=== PATIENT | male | born 2000 | race Two or more races ===

== ENCOUNTER 2019-05-04 19:56 | Emergency (ER) | payer MEDICAID ==
[~2019-05-04] VITALS: Ht 180.3 cm; Wt 65.1 kg
[2019-05-04] MEDS ORDERED: LIDOCAINE-MPF 1%, 2ML ONE ×2 (20:19→20:22)
[2019-05-04] MEDS ORDERED: DIPH,PERTUSS(ACELL),TET VAC/PF 0.5 ML IM-VACC ONE ×2 (20:22→20:30)
--- NOTE | 2019-05-04 20:28 | NUR ---
pt medicated per mar
[2019-05-04] MEDS ORDERED: LIDOCAINE-MPF 1%, 5ML INFIL ONE (20:30)
[2019-05-04 20:43] VITALS: BP 120/59
--- NOTE | 2019-05-04 20:47 | NUR ---
dressing applied to i&d site
[2019-05-04] MEDS ORDERED: NEOSPORIN OINT. PKT 1 PACKET ONE (20:48)
== END 2019-05-04 20:54 ==
LOC: ED 20:48
DX: L02.01 Cutaneous abscess of face (principal); R51 Headache; F17.210 Nicotine dependence, cigarettes, uncomplicated
CPT/HCPCS: 10060; 90471; 90715

== ENCOUNTER 2019-05-06 19:32 | Emergency (ER) | payer MEDICAID ==
[~2019-05-06] VITALS: Ht 180.3 cm; Wt 66.4 kg
[2019-05-06 19:34] VITALS: BP 117/87
== END 2019-05-06 19:57 | disposition home or self-care (01) ==
LOC: ED 19:45
DX: L02.01 Cutaneous abscess of face (principal)
CPT/HCPCS: 99281

== ENCOUNTER 2019-06-11 11:12 | Emergency (ER) | payer MEDICAID ==
--- NOTE | 2019-06-11 12:06 | NUR ---
NOT IN LOBBY WHEN CALLED TO TRIAGE X 1.
--- NOTE | 2019-06-11 12:12 | NUR ---
na x 2 [id number], 121
--- NOTE | 2019-06-11 12:47 | NUR ---
NOT IN LOBBY X 3.
== END 2019-06-11 12:53 ==
LOC: ED 12:42
DX: R25.3 Fasciculation (principal); Z53.21 Procedure and treatment not carried out due to patient leaving prior to being seen by health care provider

== ENCOUNTER 2019-06-14 19:14 | Emergency (ER) | payer MEDICAID ==
[~2019-06-14] VITALS: Ht 180.3 cm; Wt 67.9 kg
[2019-06-14 19:18] VITALS: BP 123/63
[2019-06-14] MEDS ORDERED: LIDOCAINE 1%, 10ML INFIL ONE (20:00)
[2019-06-14] MEDS ORDERED: LIDOCAINE-MPF 1%, 5ML ONE (20:06)
--- NOTE | 2019-06-14 20:40 | NUR ---
2 BOTTLES LIDOCAINE GIVEN TO YUE. I&D KIT AT BEDSIDE.
[2019-06-14] MEDS ORDERED: NEOSPORIN OINT. PKT 1 PACKET ONE (21:04)
--- NOTE | 2019-06-14 21:07 | NUR ---
REPORT TO MANDI RAE.
--- NOTE | 2019-06-14 21:32 | NUR ---
DC EDUCATION PROVIDED, PT DEMONSTRATES UNDERSTANDING. PT AMBULATED STEADILY TO DC WITH RN
== END 2019-06-14 21:33 | disposition home or self-care (01) ==
LOC: ED 20:58
DX: L03.012 Cellulitis of left finger (principal); F17.200 Nicotine dependence, unspecified, uncomplicated
CPT/HCPCS: 10060; 99283

== ENCOUNTER 2019-07-01 16:57 | Emergency (ER) | payer MEDICAID ==
[~2019-07-01] VITALS: Ht 180.3 cm; Wt 66.0 kg
[2019-07-01 17:08] VITALS: BP 123/67
--- NOTE | 2019-07-01 17:14 | NUR ---
PT HERE FOR DOCTORS NOTE.
--- NOTE | 2019-07-01 17:37 | NUR ---
Patient/Caregiver given discharge instructions and they have confirmed that they understand the instructions. Patient ambulatory with steady gait.
== END 2019-07-01 17:39 | disposition home or self-care (01) ==
LOC: ED 17:20
DX: J00 Acute nasopharyngitis [common cold] (principal); F17.200 Nicotine dependence, unspecified, uncomplicated
CPT/HCPCS: 99281

== ENCOUNTER 2019-08-12 13:05 | Emergency (ER) | payer MEDICAID ==
[~2019-08-12] VITALS: Ht 180.3 cm; Wt 68.0 kg
--- NOTE | 2019-08-12 13:13 | NUR ---
NA X1
--- NOTE | 2019-08-12 13:18 | NUR ---
NA X2
--- NOTE | 2019-08-12 16:56 | NUR ---
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
--- NOTE | 2019-08-12 17:05 | NUR ---
Late entry: Pt ambulated to room, resting in gurney, changed into gown, call light within reach, denies additional needs, even and unlabored respirations, NAD, WCTM.
[2019-08-12 17:51] LABS: BASOPHILS # (AUTO) 0.02 x10^3/uL (0-0.3); BASOPHILS % (AUTO) 0 % (0-1); EOSINOPHILS # (AUTO) 0.06 x10^3/uL (0-0.8); EOSINOPHILS % (AUTO) 1 % (1-7); LYMPHOCYTES # (AUTO) 2.04 x10^3/uL (1-6.1); LYMPHOCYTES % (AUTO) 23 % (22-44); MD NO; MEAN CORPUSCULAR HEMOGLOBIN 32.3 pg (27.5-34.5); MEAN CORPUSCULAR VOLUME 94.9 fL (81-97); MEAN PLATELET VOLUME 9.5 fL (7.4-10.4); MONOCYTES # (AUTO) 0.76 x10^3/uL (0-1.4); MONOCYTES % (AUTO) 8 % (2-9); NEUTROPHILS # (AUTO) 6.17 x10^3/uL (1.8-8.0); NEUTROPHILS % (AUTO) 68 % (42-75); PLATELET COUNT 190 x10^3/uL (130-400); RED BLOOD COUNT 5.43 x10^6/uL (4.38-5.82); RED CELL DISTRIBUTION WIDTH 13.5 % (9.4-14.8)
--- NOTE | 2019-08-12 17:53 | NUR ---
Pt resting in [place], changed into gown, call light within reach, denies additional needs, even and unlabored respirations, NAD, WCTM. Waiting on rad and lab results.
[2019-08-12] MEDS ORDERED: KETOROLAC 30 MG/1 ML IM ONE (18:00)
[2019-08-12 18:01] LABS: ALBUMIN 3.8 g/dL (3.4-5.0); ANION GAP 6 mmol/L (5-15); CALCIUM 8.4 mg/dL (8.5-10.1); CHLORIDE 108 mmol/L (98-107)
[2019-08-12 18:05] LABS: ALANINE AMINOTRANSFERASE 42 U/L (12-78); ALKALINE PHOSPHATASE 84 U/L (45-117); BILIRUBIN,TOTAL 0.4 mg/dL (0.2-1.0); CREATININE 1.05 mg/dL (0.7-1.3)
--- NOTE | 2019-08-12 18:49 | NUR ---
pt resting in [facility], denies additional needs at this time, NAD, unlabored respirations, bedside report to Arthur RN, pt care transferred at this time.
[2019-08-12 18:54] VITALS: BP 113/62
--- NOTE | 2019-08-12 19:03 | NUR ---
Pt d/c'd tp self care. Pt alert, oirented and ambulatory. Pt educated on smoking cessation, home care, OTC meds, prescription and follow-up. Pt ambulated out of ER.
== END 2019-08-12 19:07 | disposition home or self-care (01) ==
LOC: ED 14:05
DX: R07.89 Other chest pain (principal)
CPT/HCPCS: 36415; 71046; 80053; 85025; 85379; 93005; 99285

== ENCOUNTER 2020-03-15 14:36 | Emergency (ER) | payer MEDICAID ==
[~2020-03-15] VITALS: Ht 180.3 cm; Wt 68.0 kg
[2020-03-15 14:39] VITALS: BP 128/66
[2020-03-15] MEDS ORDERED: LORazepam 1MG TABLET ONE (15:25)
[2020-03-15] MEDS ORDERED: LORazepam 1MG TABLET PO ONE (15:30)
== END 2020-03-15 16:05 | disposition home or self-care (01) ==
LOC: ED 15:33
DX: F41.1 Generalized anxiety disorder (principal)
CPT/HCPCS: 99283

== ENCOUNTER 2020-04-18 18:08 | Emergency (ER) | payer MEDICAID ==
[~2020-04-18] VITALS: Ht 180.3 cm; Wt 67.7 kg
[2020-04-18 18:19] VITALS: BP 133/60
--- NOTE | 2020-04-18 19:04 | NUR ---
REPORT RECEIVED FROM PAULO RAYMOND
--- NOTE | 2020-04-21 12:21 | NUR ---
THROUGHPUT RN: PER LAB, COVID SPECIMEN LEAKED, PT CALLED AND NOTIFIED. WILL COME IN FOR RETEST.
== END 2020-04-18 20:00 | disposition home or self-care (01) ==
LOC: ED 19:47
DX: R05 Cough (principal); Z72.9 Problem related to lifestyle, unspecified; F17.210 Nicotine dependence, cigarettes, uncomplicated; R94.31 Abnormal electrocardiogram [ECG] [EKG]
CPT/HCPCS: 87635; 93005; 99283; 99284; 99406

== ENCOUNTER 2020-04-21 14:43 | Emergency (ER) | payer MEDICAID ==
[~2020-04-21] VITALS: Ht 180.3 cm; Wt 69.0 kg
[2020-04-21 14:46] VITALS: BP 123/77
== END 2020-04-21 15:04 | disposition home or self-care (01) ==
LOC: ED 14:51
DX: B34.9 Viral infection, unspecified (principal); Z20.828 Contact with and (suspected) exposure to other viral communicable diseases; R06.02 Shortness of breath; F17.200 Nicotine dependence, unspecified, uncomplicated
CPT/HCPCS: 87635; 99283

== ENCOUNTER 2020-04-26 17:12 | Emergency (ER) | payer MEDICAID ==
--- NOTE | 2020-04-26 17:22 | NUR ---
NIL X1
--- NOTE | 2020-04-26 17:43 | NUR ---
NILX2
--- NOTE | 2020-04-26 17:55 | NUR ---
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 PT PRESUMED TO HAVE LEFT
== END 2020-04-26 17:57 | disposition left against medical advice (07) ==
LOC: ED 17:50
DX: R00.2 Palpitations (principal); R05 Cough; Z53.21 Procedure and treatment not carried out due to patient leaving prior to being seen by health care provider

== ENCOUNTER 2020-07-31 14:35 | Emergency (ER) | payer MEDICAID ==
[~2020-07-31] VITALS: Ht 180.3 cm; Wt 69.5 kg
--- NOTE | 2020-07-31 15:00 | NUR ---
PROVIDER AT BEDSIDE FOR ASSESSMENT AND TO DISCUSS PLAN OF CARE
--- NOTE | 2020-07-31 15:17 | NUR ---
PT COMES IN C/O BILATERAL EAR PRESSURE [id number]. PT STATES "I TRIED TO CLEAN THEM OUT LAST NIGHT BUT I GUESS I DIDNT GET IT ALL". MONITORS CONNECTED. CALL LIGHT W/IN REACH.
--- NOTE | 2020-07-31 15:19 | NUR ---
EAR IRRIGATION SET UP AND IN PROGRESS
--- NOTE | 2020-07-31 15:29 | NUR ---
PREFERRED PHARMACY UPDATED. PT STATES NO HOME MEDS
[2020-07-31] MEDS ORDERED: CARBAMIDE PEROXIDE EAR DROPS 6.5%, 15ML LEFT EAR ONE (15:30)
[2020-07-31] MEDS ORDERED: CARBAMIDE PEROXIDE EAR DROPS 6.5%, 15ML RIGHT EAR ONE (15:30)
[2020-07-31 16:35] VITALS: BP 108/63
--- NOTE | 2020-07-31 16:35 | NUR ---
PT RESTING ON [place]. ORDERED EAR DROPS PLACED. BILATERAL EAR IRRIGATION IN PROGRESS. VSS. NAD. CALL LIGHT W/I REACH. WILL CONTINUE TO MONITOR
== END 2020-07-31 17:50 | disposition home or self-care (01) ==
LOC: ED 15:41
DX: H69.83 Other specified disorders of Eustachian tube, bilateral (principal); H61.23 Impacted cerumen, bilateral
CPT/HCPCS: 69210; 99284

== ENCOUNTER 2020-08-03 13:08 | Emergency (ER) | payer MEDICAID ==
[~2020-08-03] VITALS: Ht 180.3 cm; Wt 70.3 kg
[2020-08-03 13:43] VITALS: BP 116/59
== END 2020-08-03 14:49 | disposition home or self-care (01) ==
LOC: ED 14:40
DX: L02.211 Cutaneous abscess of abdominal wall (principal); R10.31 Right lower quadrant pain
CPT/HCPCS: 87491; 87591; 99283

== ENCOUNTER 2020-09-11 00:27 | Emergency (ER) | payer MEDICAID ==
[~2020-09-11] VITALS: Ht 180.3 cm; Wt 70.2 kg
[2020-09-11 00:34] VITALS: BP 137/81
== END 2020-09-11 01:13 | disposition home or self-care (01) ==
LOC: ED 00:57
DX: Z00.8 Encounter for other general examination (principal); R11.2 Nausea with vomiting, unspecified; F17.210 Nicotine dependence, cigarettes, uncomplicated
CPT/HCPCS: 99406

== ENCOUNTER 2020-10-10 03:56 | Emergency (ER) | payer MEDICAID ==
[~2020-10-10] VITALS: Ht 180.3 cm; Wt 69.0 kg
[2020-10-10 03:58] VITALS: BP 143/83
[2020-10-10] MEDS ORDERED: ONDANSETRON 2MG/ML, 2ML ONE (04:17)
--- NOTE | 2020-10-10 04:25 | NUR ---
PT STATES HE DOES NOT WANT ANY LABS OR IVF BECUASE HE STATES HE IS REALLY HERE FOR A WORK NOTE TO EXCUSE HIM FROM WORK TODAY. PT NOT ACTIVELY VOMITTING AND PT WELL APPEARING.
[2020-10-10] MEDS ORDERED: ONDANSETRON ODT 4 MG ONE (04:29)
[2020-10-10] MEDS ORDERED: ONDANSETRON ODT 4 MG PO ONE (04:30)
[2020-10-10] MEDS ORDERED: SODIUM CHLORIDE FLUSH 10ML SYR IVF ONE (04:30)
[2020-10-10] MEDS ORDERED: PROMETHAZINE 25 MG/ML, 1ML IM ONE (04:30)
[2020-10-10] MEDS ORDERED: SODIUM CHLORIDE 0.9% 1,000ML IVBOLUS ONE (04:30)
[2020-10-10] MEDS ORDERED: ONDANSETRON 2MG/ML, 2ML IVPush ONE (04:30)
== END 2020-10-10 04:35 | disposition home or self-care (01) ==
LOC: ED 04:29
DX: R11.2 Nausea with vomiting, unspecified (principal)
CPT/HCPCS: 99283; Q0162

== ENCOUNTER 2020-10-25 12:13 | Emergency (ER) | payer MEDICAID ==
--- NOTE | 2020-10-25 12:34 | NUR ---
NO ANSWER FROM LOBBY X1
--- NOTE | 2020-10-25 13:01 | NUR ---
NILX 2
--- NOTE | 2020-10-25 13:32 | NUR ---
NIL X 3. REMOVED FROM SYSTEM [facility]BS
== END 2020-10-25 13:33 | disposition left against medical advice (07) ==
LOC: ED 12:54
DX: R10.9 Unspecified abdominal pain (principal); Z53.21 Procedure and treatment not carried out due to patient leaving prior to being seen by health care provider